=== PATIENT | male | born 2000 | race Caucasian/White ===

== ENCOUNTER 2020-03-19 01:44 | Emergency (ER) | payer OTHER ==
[~2020-03-19] VITALS: Ht 170.2 cm; Wt 77.3 kg
[2020-03-19 02:04] LABS: ABSOLUTE BASOPHILS 0.1 thou/uL (0.0-0.2); ABSOLUTE LYMPHOCYTES 1.2 thou/uL (0.8-5.3); ABSOLUTE MONOCYTES 0.5 thou/uL (0.0-1.2); ABSOLUTE NEUTROPHILS 4.7 thou/uL (1.6-8.1); BASOPHILS 0.8 %; EOSINOPHILS 0.3 %; HEMATOCRIT 46.4 % (42.0-52.0); HEMOGLOBIN 15.7 gm/dL (14.0-18.0); LYMPHOCYTES 18.5 %; MCH 26.8 pg (26.0-34.0); MCHC 33.8 g/dL (28.0-37.0); MCV 79.4 fL (80.0-100.0); MONOCYTES 7.2 %; MPV 7.3 fl. (7.2-11.1); NUCLEATED RBCS 0 /100WBC; PLATELET COUNT* 239 thou/uL (150-400); POLYS 73.2 %; RBC 5.85 mil/uL (4.50-6.00); RDW-CV 13.7 % (10.5-14.5); WBC 6.5 thou/uL (4.0-11.0)
[2020-03-19 02:13] LABS: CALCIUM 9.2 mg/dL (8.5-10.1); CREATININE 1.1 mg/dL (0.6-1.3); POTASSIUM 3.6 mmol/L (3.5-5.1)
[2020-03-19 02:15] LABS: ALBUMIN 4.5 g/dL (3.4-5.0); TOTAL BILIRUBIN 0.8 mg/dL (<0.1-1.0); TOTAL PROTEIN 8.3 g/dL (6.4-8.2)
[2020-03-19 02:16] LABS: PROTIME 10.8 Seconds (9.20-11.50)
[2020-03-19] MEDS ORDERED: TOPROL XL25 MG PO (02:55)
[2020-03-19 03:21] VITALS: BP 132/80
--- NOTE | 2020-03-19 08:28 | EKG ---
[place] [address] ELECTROCARDIOGRAM REPORT Name: TOVA AMBROCIO Room: [facility]#: [id number] Admission: 03/19/20 Attend Phys: Discharge: 03/19/20 Date of : 89 Date of Service: 03/19/20146 Report #: [id number] THIS REPORT FOR: //name// [facility] ED Test Date: 2020-03-19 Test Time: 01:47:40 Pat Name: TOVA AMBROCIO Department: Room: Gender: Information Systems Architect: MAINOR : 2000 Requested By: Bryanna Portillo Order Number: [id number] MD: Jonatan Huynh Measurements Intervals [place] Rate: 105 P: 61 [place]: 145 QRS: 62 QRSD: 81 T: 37 QT: 309 QTc: 409 Interpretive Statements Sinus tachycardia No previous ECG available for comparison Electronically Signed On 03-19-2020 8:28:39 CDT by Jonatan Huynh [email or web address] <ELECTRONICALLY SIGNED> By: Jonatan Huynh MD, [facility] 03/19/20 0828 6 6 Jonatan Huynh MD, FACC /EPI
== END 2020-03-19 03:21 | disposition home or self-care (01) ==
LOC: M.ERS 01:44
PROVIDERS: Personal Emergency Response Attendant
DX: I47.1 Supraventricular tachycardia (principal)